=== PATIENT | male | born 1970 | race Caucasian/White ===

== ENCOUNTER → 2021-06-25 | Outpatient (CLI) | payer MEDICARE ==
--- NOTE | 2021-06-25 15:28 | RAD ---
AP and Lateral Views of the Chest 06/25/2021 3:22 PM Indication: Upper respiratory infection. Comparison: None available Findings: There is mild diffuse interstitial coarsening. No pneumothorax or pleural effusion is seen. Heart size is normal. There is a right internal jugular port with tip the cavoatrial junction. IMPRESSION: Diffuse interstitial thickening. Findings may be chronic, however no comparison is availa ble. Mild edema or an atypical/viral infectious process is also possible. Electronically signed by: José Miguel Garcia MD (06/25/2021 3:25 PM) [id number]
== END ==
LOC: RAD 14:52
PROVIDERS: ATTEND Physician Assistant
DX: J84.89 Other specified interstitial pulmonary diseases (principal); J06.9 Acute upper respiratory infection, unspecified
CPT/HCPCS: 71046